=== PATIENT | male | born 1995 | race Caucasian/White ===

== ENCOUNTER 2019-03-08 19:17 | Emergency (ER) | payer BC, OTHER ==
[2019-03-08 19:52] VITALS: BP 120/84; PULSE 80
--- NOTE | 2019-03-08 20:16 | EDM.PDOC ---
ED HPI GENERAL MEDICAL PROBLEM - General Chief Complaint: Upper Extremity Injury/Pain Stated Complaint: WIRE IN LEFT HAND Time Seen by Provider: 03/08/19 20:03 Source of Information: Reports: Patient History Limitations: Reports: No Limitations - History of Present Illness INITIAL COMMENTS - FREE TEXT/NARRATIVE: Patient's unfortunate 24-year-old male presents to emergency Department today with complaint of puncture wound to left hand. Patient reports she was in his normal state of health roughly an hour prior to arrival when he is attempting to catch a rubber hose and the metal wire from a hose punctured his left hand at the interdigital space between the neck and and third MCP joints. Patient has a puncture wound no active bleeding no foreign body noted at this time patient reports he did pull the wire out and feels like he got it out intact. I'm unable to palpate any foreign body at this time, there is swelling and ecchymosis over the second MCP on the volar aspect. Neurovascular is intact no tendon dysfunction noted - Related Data Allergies Allergy/AdvReac Type Severity Reaction Status Date / Time No Known Allergies Allergy Verified 03/08/19 19:49 Home Meds: Home Meds Cephalexin [Keflex] 500 mg PO QID #28 capsule 03/08/19 [Rx] Past Medical History HEENT History: Reports: Impaired Vision, Other (See Below) Other HEENT History: wears glasses, contacts. wisdom teeth extraction Respiratory History: Other Musculoskeletal History: shoulder arthroscopy 2010 (Right) - Past Surgical History HEENT Surgical History: Reports: Other (See Below) Other HEENT Surgeries/Procedures: teeth extraction Social & Family History - Tobacco Use Smoking Status *Q: Never Smoker - Caffeine Use Caffeine Use: Reports: None - Recreational Drug Use Recreational Drug Use: No Review of Systems - Review of Systems Review Of Systems: See Below Constitutional: Denies: Chills, Fever Musculoskeletal: Reports: Joint Pain ED EXAM, GENERAL - Physical Exam Exam: See Below Exam Limited By: No Limitations General Appearance: Alert, WD/WN, Mild Distress Neck: Normal Inspection, Supple, Non-Tender, Full Range of Motion Respiratory/Chest: No Respiratory Distress, Lungs Clear, Normal Breath Sounds, No Accessory Muscle Use, Chest Non-Tender Cardiovascular: Normal Peripheral Pulses, Regular Rate, Rhythm, No Edema, No Gallop, No JVD, No Murmur, No Rub GI/Abdominal: Normal Bowel Sounds, Soft, Non-Tender, No Organomegaly, No Distention, No Abnormal Bruit, No Mass Extremities: Other (Patient has ecchymosis on the volar aspect of the second MCP joint and tendon dysfunction noted) Neurological: Alert, Oriented Skin Exam: Warm, Dry, No Rash Course - Vital Signs Last Recorded V/S: Last Vital Signs Temp 98.4 F 03/08/19 19:49 Pulse 80 03/08/19 19:49 Resp 16 03/08/19 19:49 BP 120/84 03/08/19 19:49 Pulse Ox 96 03/08/19 19:49 Departure - Departure Time of Disposition: 20:13 Disposition: Home, Self-Care 01 Clinical Impression: Puncture wound of left hand Qualifiers: Encounter type: initial encounter Foreign body presence: without foreign body Qualified Code(s): S61.432A - Puncture wound without foreign body of left hand, initial encounter - Discharge Information Prescriptions: Cephalexin [Keflex] 500 mg PO QID #28 capsule Referrals: PCP,None [Primary Care Provider] - Espinoza Soto MD [Physician] - Additional Instructions: Home, rest, keep wound clean and dry, clean wound daily apply Neosporin and bandage, return as needed for worsening condition Sepsis Event Note - Evaluation Sepsis Screening Result: No Definite Risk - Focused Exam Vital Signs: Vital Signs Temp Pulse Resp BP Pulse Ox 03/08/19 19:49 98.4 F 80 16 120/84 96 Date Exam was Performed: 03/08/19 Time Exam was Performed: 20:11
== END 2019-03-08 20:27 | disposition home or self-care (01) ==
LOC: JD.ED 19:17
DX: S61.432A Puncture wound without foreign body of left hand, initial encounter (principal); W45.8XXA Other foreign body or object entering through skin, initial encounter; W20.8XXA Other cause of strike by thrown, projected or falling object, initial encounter; Y93.89 Activity, other specified
CPT/HCPCS: 99282; 99283